=== PATIENT | female | born 1995 | race American Indian/Alaskan Native ===

== ENCOUNTER 2022-01-29 06:32 | Emergency (ER) | payer OTHER ==
[2022-01-29 07:33] LABS: Bilirubin,Urine NEG (Negative); Blood,Urine MOD (Negative); Color,Urine Yellow (Yellow); Urobilinogen,Urine < 2.0 mg/dL (<2.0)
[2022-01-29 07:40] LABS: Bacteria,Urine 1+ /HPF (Negative); Mucus,Urine 2+ /HPF
[2022-01-29 07:48] LABS: WBC,Urine > 182.0 /HPF (0.0-6.0)
--- NOTE | 2022-01-29 13:02 | Emergency Department Report ---
ED Female HPI - General Chief complaint: Vaginal Bleeding Stated complaint: VAGINAL PAIN AND BLEEDING WHEN PEE Source: patient Mode of arrival: Ambulatory Limitations: No Limitations - History of Present Illness Initial comments: 26 y/o female present to Ed complain of dysuria x 1 week .Patient state she notice vaginal spotting and pain worsen in her pelvis area with urination. .Patient state that she homosexual was using some sexual toys in thinks that may have had a reaction to the toys . Patient denies use any lubrication. She denies any sexual contact with any garry. Patient denies any medical history. Patient denies any vaginal discharge at present time. Denies any fever chills or nausea or vomiting. Patient is alert and oriented x3. No acute distress. No ill appearance noted. Physical examination patient has vaginal labial has mild edema noted. No vaginal tears noted from the cervical area. white vaginal discharge noted . Wet prep positive for bacterial vaginosis Rechecked the patient is resting quietly and comfortable and feeling better. I discussed the results of diagnostic study, my clinical impression and the plan for further treatment with the patient. Patient agrees with plan and discharge at this present time. All question addressed. I have given the patient instruction regarding a diagnosis ,expectation ,follow- up and return precaution. I explained to the patient that emergent condition may arise and to return to the ED for new worsen and any new persisting condition. I have explained the importance of following up with the primary care physician or referral physician listed below has instructed. The patient verbalized understanding of discharge instruction. MD Complaint: dysuria Onset/Timin -: week(s) Severity scale (0 -10): 5 Quality: dull Consistency: intermittent Improves with: none Are you Now?: No Associated Symptoms: denies other symptoms - Related Data Previous Rx's Medication Instructions Recorded Last Taken Type Fluconazole (Nf) [Diflucan TAB] 150 mg PO ONCE 2 Days #2 tablet 01/29/22 Unknown Rx Phenazopyridine [Pyridium] 200 mg PO BID #6 tab 01/29/22 Unknown Rx Sulfamethoxazole/Trimethoprim 1 each PO BID 7 Days #14 tab 01/29/22 Unknown Rx [Bactrim DS TAB] metroNIDAZOLE [Flagyl] 500 mg PO Q12HR 7 Days #14 tab 01/29/22 Unknown Rx Allergies Allergy/AdvReac Type Severity Reaction Status Date / Time oxycodone Allergy Unknown Verified 01/29/22 06:42 ED Review of Systems ROS: Stated complaint: VAGINAL PAIN AND BLEEDING WHEN PEE Other details as noted in HPI Constitutional: denies: chills, fever Eyes: denies: eye pain, eye discharge, vision change ENT: denies: ear pain, throat pain Respiratory: denies: cough, shortness of breath, wheezing Cardiovascular: denies: chest pain, palpitations Endocrine: no symptoms reported Gastrointestinal: denies: abdominal pain, nausea, diarrhea Genitourinary: dysuria, frequency. denies: urgency, discharge Musculoskeletal: denies: back pain, joint swelling, arthralgia Skin: denies: rash, lesions Neurological: denies: headache, weakness, paresthesias Psychiatric: denies: anxiety, depression Hematological/Lymphatic: denies: easy bleeding, easy bruising ED Past Medical Hx - Medications Home Medications: Home Medications Medication Instructions Recorded Confirmed Last Taken Type Fluconazole (Nf) [Diflucan TAB] 150 mg PO ONCE 2 Days #2 tablet 01/29/22 Unknown Rx Phenazopyridine [Pyridium] 200 mg PO BID #6 tab 01/29/22 Unknown Rx Sulfamethoxazole/Trimethoprim 1 each PO BID 7 Days #14 tab 01/29/22 Unknown Rx [Bactrim DS TAB] metroNIDAZOLE [Flagyl] 500 mg PO Q12HR 7 Days #14 tab 01/29/22 Unknown Rx ED Physical Exam - General Limitations: No Limitations General appearance: alert, in no apparent distress - Head Head exam: Present: atraumatic, normocephalic - Eye Eye exam: Present: normal appearance - ENT ENT exam: Present: mucous membranes moist - Neck Neck exam: Present: normal inspection - Respiratory Respiratory exam: Present: normal lung sounds bilaterally. Absent: respiratory distress - Cardiovascular Cardiovascular Exam: Present: regular rate, normal rhythm. Absent: systolic murmur, diastolic murmur, rubs, gallop - GI/Abdominal GI/Abdominal exam: Present: soft, normal bowel sounds - Extremities Exam Extremities exam: Present: normal inspection - Back Exam Back exam: Present: normal inspection - Neurological Exam Neurological exam: Present: alert, oriented X3 - Psychiatric Psychiatric exam: Present: normal affect, normal mood - Skin Skin exam: Present: warm, dry, intact, normal color. Absent: rash ED Course Vital Signs 01/29/22 01/29/22 06:35 13:37 Temperature 98.1 F 98.1 F Pulse Rate 97 H 88 Respiratory 18 18 Rate Blood Pressure 135/93 128/75 O2 Sat by Pulse 100 100 Oximetry Critical care attestation.: If time is entered above; I have spent that time in minutes in the direct care of this critically ill patient, excluding procedure time. ED Disposition Clinical Impression: Bacterial vaginosis, Acute urinary tract infection Disposition: HOME / SELF CARE / HOMELESS Is pt being admited?: No Does the pt Need Aspirin: No Condition: Stable Instructions: Urinary Tract Infection, Adult, [id number], Bacterial Vaginosis, [id number], Bacterial Vaginosis (ED) Additional Instructions: Take medication as prescribed Return to ED for any worsening symptom Prescriptions: Sulfamethoxazole/Trimethoprim [Bactrim DS TAB] 1 each PO BID 7 Days #14 tab Fluconazole (Nf) [Diflucan TAB] 150 mg PO ONCE 2 Days #2 tablet metroNIDAZOLE [Flagyl] 500 mg PO Q12HR 7 Days #14 tab Phenazopyridine [Pyridium] 200 mg PO BID #6 tab Referrals: [facility] [Provider Group] - 3-5 Days Forms: STI Treatment and Prevention Time of Disposition: 14:20
[2022-01-29 13:26] LABS: HCG Qualitative,Urine Negative (Negative)
[2022-01-29] MEDS ORDERED: AZITHROMYCIN 250 MG TAB PO ONE (13:48)
[2022-01-29 14:05] VITALS: BP 128/75
[2022-01-29] MEDS ORDERED: LIDOCAINE-MPF (1%) 10 MG/1 ML VIAL 5 ML INFILTRATI ONE (14:30)
== END 2022-01-30 10:10 | disposition home or self-care (01) ==
LOC: ED 06:32
DX: N76.0 Acute vaginitis (principal); N39.0 Urinary tract infection, site not specified
CPT/HCPCS: 81001; 81025; 87210; 96372; 99283; J0696; J3490